=== PATIENT | female | born 1995 | race African-American/Black ===

== ENCOUNTER 2016-10-15 10:41 | Emergency (ER) | payer SELFPAY ==
[~2016-10-15] VITALS: Ht 154.9 cm; Wt 56.9 kg
[2016-10-15 11:28] VITALS: BP 112/77
== END 2016-10-15 13:20 | disposition home or self-care (01) ==
LOC: ED 10:41
DX: K61.1 Rectal abscess (principal)

== ENCOUNTER 2016-10-17 10:07 | Emergency (ER) | payer SELFPAY ==
[~2016-10-17] VITALS: Ht 162.6 cm; Wt 56.7 kg
[2016-10-17 10:56] VITALS: BP 106/58
== END 2016-10-17 11:30 | disposition home or self-care (01) ==
LOC: ED 10:07
DX: K61.1 Rectal abscess (principal)

== ENCOUNTER 2016-11-04 20:39 | Emergency (ER) | payer SELFPAY ==
[2016-11-04 21:12] VITALS: BP 130/89
== END 2016-11-04 21:12 | disposition home or self-care (01) ==
LOC: ED 20:39
DX: J02.9 Acute pharyngitis, unspecified (principal)

== ENCOUNTER 2018-01-08 21:36 | Emergency (ER) | payer MEDICAID ==
[~2018-01-08] VITALS: Ht 154.9 cm; Wt 56.7 kg
[2018-01-08 21:48] VITALS: Ht 154.9 cm; Wt 56.7 kg
[2018-01-09 00:29] VITALS: BP 128/70
== END 2018-01-09 00:29 | disposition home or self-care (01) ==
LOC: ED 21:36
DX: G43.909 Migraine, unspecified, not intractable, without status migrainosus (principal)

== ENCOUNTER 2018-01-21 20:50 | Emergency (ER) | payer MEDICAID ==
[2018-01-21 21:05] VITALS: Ht 154.9 cm
[2018-01-22 01:03] VITALS: BP 115/71
== END 2018-01-22 01:03 | disposition home or self-care (01) ==
LOC: ED 20:50
DX: N83.202 Unspecified ovarian cyst, left side (principal); N83.201 Unspecified ovarian cyst, right side

== ENCOUNTER 2018-05-15 20:26 | Emergency (ER) | payer OTHER ==
[~2018-05-15] VITALS: Ht 154.9 cm; Wt 56.7 kg
[2018-05-15 20:38] VITALS: Ht 154.9 cm; Wt 56.7 kg
[2018-05-15 22:05] LABS: BASOPHIL % 0.4 % (0-2); PLATELET COUNT 319 x10^3mcL (130-400); RED CELL DISTRIBUTION WIDTH 13.5 % (11.5-14.5)
[2018-05-15 22:09] LABS: CALCIUM 9.3 mg/dL (8.5-10.1); CARBON DIOXIDE 26.7 mmol/L (21-32); CHLORIDE SERUM 104 mmol/L (98-107); CREATININE SERUM 0.8 mg/dL (0.6-1.0); GFR1 > 60 mL/min; GLUCOSE SERUM 87 mg/dL (74-106); POTASSIUM SERUM 3.9 mmol/L (3.5-5.1); SODIUM SERUM 141 mmol/L (136-145)
[2018-05-15 22:14] LABS: ALBUMIN 4.1 g/dL (3.4-5.0); ALKALINE PHOSPHATASE 82 U/L (46-116); ALT/SGPT 13 U/L (14-59); AST/SGOT 15 U/L (15-37); BILIRUBIN TOTAL 1.3 mg/dL (0.20-1.00)
[2018-05-16 02:23] VITALS: BP 108/66
== END 2018-05-16 02:23 | disposition home or self-care (01) ==
LOC: ED 20:26
PROVIDERS: Specialist
DX: N83.201 Unspecified ovarian cyst, right side (principal); G43.909 Migraine, unspecified, not intractable, without status migrainosus
CPT/HCPCS: 36415; J7030; Q9967

== ENCOUNTER 2018-05-16 13:24 | Emergency (ER) | payer OTHER ==
[~2018-05-16] VITALS: Ht 154.9 cm; Wt 58.1 kg
[2018-05-16 13:43] VITALS: Ht 154.9 cm; Wt 58.1 kg
[2018-05-16 16:53] VITALS: BP 113/74
== END 2018-05-16 16:53 | disposition home or self-care (01) ==
LOC: ED 13:24
DX: N83.201 Unspecified ovarian cyst, right side (principal); G43.909 Migraine, unspecified, not intractable, without status migrainosus

== ENCOUNTER 2019-06-30 11:05 | Emergency (ER) | payer OTHER ==
[~2019-06-30] VITALS: Ht 154.9 cm; Wt 59.0 kg
[2019-06-30 11:09] VITALS: Ht 154.9 cm; Wt 59.0 kg
[2019-06-30 11:45] VITALS: BP 114/78
== END 2019-06-30 11:45 | disposition home or self-care (01) ==
LOC: ED 11:05
DX: J11.1 Influenza due to unidentified influenza virus with other respiratory manifestations (principal); G43.909 Migraine, unspecified, not intractable, without status migrainosus